=== PATIENT | male | born 1975 | race Caucasian/White ===

== ENCOUNTER 2018-08-26 19:58 | Emergency (ER) | payer MEDICARE ==
[~2018-08-26] VITALS: Ht 180.3 cm; Wt 83.9 kg
[2018-08-26 20:01] VITALS: BP 153/96
--- NOTE | 2018-08-26 20:08 | ER.PDOC ---
General Chief Complaint: Requesting Medical Care Stated Complaint: SHORTNESS OF BREATH Time seen by MD: 20:08 Source: patient Exam Limitations: no limitations History of Present Illness Initial Comments Pt with SOB, cough, with pinkish expectoration for about 1 week, smokes 2 packs daily Timing/Duration: 1 week Severity: moderate Activities at Onset: none Prior Episodes/Possible Cause: occasional episodes Modifying Factors: improves with activity Associated Symptoms: denies symptoms Allergies: Coded Allergies: No Known Allergies (Unverified , 08/26/18) Review of Systems Constitutional: see HPI EENTM: no symptoms reported Respiratory: see HPI Cardiovascular: no symptoms reported Gastrointestinal: no symptoms reported Genitourinary: no symptoms reported Musculoskeletal: no symptoms reported Skin: no symptoms reported Psychiatric/Neurological: no symptoms reported Endocrine: no symptoms reported Hematologic/Lymphatic: no symptoms reported Physical Exam General Appearance: No Apparent Distress, WD/WN HEENT: PERRL/EOMI, Normal ENT Inspection, TMs Normal, Pharynx Normal Neck: Non-Tender, Full Range of Motion, Supple, Normal Inspection Respiratory: no respiratory distress, no accessory muscle use, decreased breath sounds, prolonged expirations, rhonchi (bilaterally), wheezing, expiration, inspiration Cardiovascular: Normal Peripheral Pulses, Regular Rate, Rhythm, No Edema, No Gallop, No JVD, No Murmur Gastrointestinal: Normal Bowel Sounds, No Organomegaly, No Pulsatile Mass, Non Tender, Soft Extremities: Normal Range of Motion, Non-Tender, Normal Inspection, No Pedal Edema, No Calf Tenderness, Normal Capillary Refill Neurologic/Psychiatric: 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 (08/26/18 20:31) Dexamethasone Sod Phosphate (Decadron) (08/26/18 20:31) Urinalysis (08/26/18 20:36) Drug Screen Medical(Ml) (08/26/18 20:36) Ipratropium/Albuterol Sulfate (Duoneb 0. (08/26/18 20:42) Dexamethasone Sod Phosphate (Decadron) (08/26/18 20:42) Vital Signs Date Time Temp Pulse Resp B/P (MAP) Pulse Ox O2 Delivery O2 Flow Rate FiO2 08/26/18 20:49 85 20 97 08/26/18 20:01 95 22 97 Room Air 08/26/18 20:01 98.2 95 22 153/96 (115) 97 Room Air 98.2 08/26/18 20:01 98.2 95 22 98.2 Administered Medications Medications (Trade) Dose Ordered Sig/Jhonatan Route PRN Reason Start Time Stop Time Status Last Admin Dose Admin Albuterol/ Ipratropium (Duoneb 0.5 Mg-3 Mg/3 ml Soln) 3 ml STAT STAT IH 08/26/18 20:31 08/26/18 20:33 DC 08/26/18 20:48 3 ML Dexamethasone Sodium Phosphate (Decadron) 4 mg STAT STAT IH 08/26/18 20:31 08/26/18 20:33 DC 08/26/18 20:48 4 MG Laboratory Tests Test 08/26/18 20:00 08/26/18 20:36 Urine Collection Type VOID Urine Color YELLOW (YELLOW) Urine Appearance CLEAR (CLEAR) Urine Bilirubin NEGATIVE MG/DL (NEGATIVE) Urine Ketones NEGATIVE (NEGATIVE) Urine Specific [place] 1.010 (1.005-1.035) Urine pH 8 (5.0-6.0) Urine Protein NEGATIVE (NEGATIVE) Urine Urobilinogen NORMAL (NEGATIVE) Urine Nitrate NEGATIVE (NEGATAIVE) Urine Leukocyte Esterase NEGATIVE (NEGATIVE) Urine Blood 50 2+ (NEGATIVE) H Urine RBC 2-5 RBC/HPF (NONE SEEN) Urine WBC 0-2 WBC/HPF (0-2) Urine Squamous Epithelial Cells RARE #/HPF (FEW) Urine Bacteria NONE SEEN (NONE SEEN) Urine Glucose NORMAL (NEGATIVE) Urine Opiates, Qualitative NEGATIVE ng/mL (CUT-OFF:300) Urine Methadone, Qualitative NEGATIVE ng/mL (CUT-OFF:300) Urine Amphetamine Qualitative NEGATIVE ng/mL (CUTOFF:1000) Urine Barbiturates, Qualitative NEGATIVE ng/mL (CUT-OFF:200) Urine Phencyclidine Screen NEGATIVE ng/mL (CUT-OFF:25) Urine MDMA (Ecstasy), Qualitative NEGATIVE ng/mL (CUT-OFF:300) Urine Benzodiazepines Screen NEGATIVE ng/mL (CUT-OFF:200) Urine Cocaine Qualitative NEGATIVE ng/mL (CUT-OFF:300) Ur Tetrahydrocannabinol (THC) Scrn NEGATIVE ng/mL (CUT-OFF:50) White Blood Count 4.5 10^3/uL (4.5-11.0) Red Blood Count 5.16 10^6/uL (4.50-5.90) Hemoglobin 14.2 g/dL (13.9-16.3) Hematocrit 41.0 % (37.0-53.0) Mean Corpuscular Volume 79.5 fL (78-100) Mean Corpuscular Hemoglobin 27.5 pg (26-34) Mean Corpuscular Hemoglobin Concent 34.6 g/dL (33-37) Red Cell Distribution Width 15.8 % (11.5-14.5) H Platelet Count 184 10^3/uL (150-400) Mean Platelet Volume 9.9 fL (7.8-11.0) Neutrophils (%) (Auto) 51.9 % (41.0-85.0) Lymphocytes (%) (Auto) 34.0 % (24.0-44.0) Monocytes (%) (Auto) 11.7 % (5.0-12.0) Neutrophils # (Auto) 2.4 10^3/uL (1.8-7.7) Lymphocytes # (Auto) 1.5 10^3/uL (1.0-4.8) Monocytes # (Auto) 0.5 10^3/uL (0.3-0.8) Absolute Immature Granulocyte (auto 0.01 10^3 u/L (0-2) Eosinophils % 1.8 % (0.0-5.0) Basophils % 0.4 % (0.0-0.2) H Basophils # 0.0 10^3/uL (0.0-0.1) Eosinophil Count 0.1 10^3/uL (0.0-0.2) Sodium Level 134 mmol/L (132-145) Potassium Level 3.4 mmol/L (3.6-5.2) L Chloride Level 97.0 mmol/L (96-109) Carbon Dioxide Level 30.1 mmol/L (20.0-32) Anion Gap 10.3 Blood Urea Nitrogen 1 mg/dL (7-18) L Creatinine 0.80 mg/dL (0.59-1.40) Estimated GFR () 128.3 (>/=60) BUN/Creatinine Ratio 1.0 Glucose Level 86 mg/dL (70-110) Calcium Level 8.8 mg/dL (8.4-10.5) Total Bilirubin 0.4 mg/dL (0.2-1.0) Aspartate Amino Transferase (AST) 10 U/L (0-35) Alanine Aminotransferase (ALT) 8 U/L (12-78) L Alkaline Phosphatase 86 U/L (50-136) Pro-B-Type Natriuretic Peptide 47 pg/mL (0-125) Total Protein 6.6 g/dL (6.4-8.2) Albumin 3.2 g/dL (3.4-5.0) L Globulin 3.4 Percent Immature Gran (Cell Imm) 0.20 % (0.00-0.50) Departure Time of Disposition: 21:35 Disposition: 01 HOME, SELF-CARE Impression: Primary Impression: COPD (chronic obstructive pulmonary disease) with acute bronchitis Condition: Stable Patient Instructions: Chronic Obstructive Pulmonary Disease Exacerbation Referrals: PCP,UNKNOWN (PCP) PRIMARY CARE PROVIDER Duration or Time Spent with Pa: JAQUAN WEAVER MD Aug 26, 2018 20:08
[2018-08-26] MEDS ORDERED: DUONEB 0.5 MG-3 MG/3 ML SOLN IH STA (20:31)
[2018-08-26] MEDS ORDERED: DECADRON IH STA (20:31)
[2018-08-26] MEDS ORDERED: DUONEB 0.5 MG-3 MG/3 ML SOLN IH ONE (20:42)
[2018-08-26] MEDS ORDERED: DECADRON ONE (20:42)
[2018-08-26 20:48] LABS: BILIRUBIN,URINE NEGATIVE (NEGATIVE); UROBILINOGEN,URINE NORMAL (NEGATIVE)
[2018-08-26 20:48] LABS: BASOPHIL % 0.4 % (0.0-0.2); EOSINOPHIL # 0.1 10^3/uL (0.0-0.2); EOSINOPHIL % 1.8 % (0.0-5.0); HEMOGLOBIN 14.2 g/dL (13.9-16.3); LYMPHOCYTES # 1.5 10^3/uL (1.0-4.8); MEAN CELL HGB 27.5 pg (26-34); MEAN CELL HGB CONCENTRATION 34.6 g/dL (33-37); MEAN CORP VOLUME 79.5 fL (78-100); MEAN PLATELET VOLUME 9.9 fL (7.8-11.0); MONOCYTES # 0.5 10^3/uL (0.3-0.8); MONOCYTES % 11.7 % (5.0-12.0); NEUTROPHIL # 2.4 10^3/uL (1.8-7.7); NEUTROPHILS % 51.9 % (41.0-85.0); RED CELL DISTRIBUTION WIDTH 15.8 % (11.5-14.5); WHITE BLOOD CELL 4.5 10^3/uL (4.5-11.0)
--- NOTE | 2018-08-26 20:55 | PCM.EKG ---
[facility] Test Date: 2018-08-26 Test Time: 20:54:07 Pat Name: DOMINGA CASTELLANO Department: Room: Gender: M Relay Technician: JACQUELYN : 1975 Requested By: JAQUAN ROCHE Order Number: [id number] Reading MD: Jaquan Roche Measurements Intervals [place] Rate: 79 P: 63 TN: 140 QRS: 82 QRSD: 98 T: 75 QT: 400 QTc: 458 Interpretive Statements Normal sinus rhythm Normal ECG No previous ECG available for comparison Electronically Signed On 08-29-2018 9:03:21 CDT by Jaquan Roche Please click the below link to view image of tracing.
--- NOTE | 2018-08-26 21:04 | DIREP ---
PROCEDURE:CHEST 1 VIEW COMPARISON:[facility], CR, XRAY CHEST 2 VWS, 12/20/2017, 05:53 PM. INDICATIONS:COPD exacerbation FINDINGS: LUNGS/PLEURA:There is pulmonary hyperinflation consistent with underlying COPD. No focal consolidation. No effusions. VASCULATURE:Normal. Unremarkable pulmonary vasculature. CARDIAC:Normal. No cardiac silhouette abnormality or cardiomegaly. MEDIASTINUM:Normal. No visible mass or adenopathy. BONES:Lower cervical fusion hardware OTHER:Negative. CONCLUSION: 1. Pulmonary hyperinflation consistent with underlying COPD. 2. Cervical fusion hardware. 3. No evidence for acute cardiopulmonary disease. Dictated by: Yosvany Reece MD on 08/26/2018 at 09:02 PM
[2018-08-26 21:09] LABS: APPEARANCE,URINE CLEAR (CLEAR); UA COLOR YELLOW (YELLOW)
[2018-08-26 21:13] LABS: CALCIUM 8.8 mg/dL (8.4-10.5); CARBON DIOXIDE 30.1 mmol/L (20.0-32)
[2018-08-26 21:45] VITALS: BP 135/91
[2018-08-26 22:02] VITALS: BP 153/96
== END 2018-08-26 21:46 | disposition home or self-care (01) ==
LOC: ER 19:58
DX: J20.9 Acute bronchitis, unspecified (principal); J44.0 Chronic obstructive pulmonary disease with (acute) lower respiratory infection; Z79.899 Other long term (current) drug therapy
CPT/HCPCS: 36415; 71045; 80053; 80307; 81000; 83880; 85025; 93005; 94640; 99284; J1100; J7620